=== PATIENT | male | born 1940 | race Caucasian/White ===

== ENCOUNTER 2020-06-27 19:18 | Inpatient (IN) | payer MEDICARE, MEDICAID, SELFPAY ==
--- NOTE | 2020-06-27 19:20 | ECG_ITS ---
[facility] Test Date: 2020-06-27 Pat Name: Royce Bergman Department: Room: 111 Gender: Male Senior Support Analyst: : 1940 Requested By: Jessica Ji Order Number: [id number] Demarco MD: Oseas Phillips M.D. Measurements Intervals [place] Rate: 83 P: 78 ID: [id number] QRS: 2 QRSD: 106 T: 81 QT: 392 QTc: 462 Interpretive Statements SINUS RHYTHM WITH SINUS ARRHYTHMIA WITH FIRST DEGREE AV BLOCK ANTERIOR MYOCARDIAL INFARCTION [40+ ms Q WAVE AND/OR ST/T ABNORMALITY IN V3/V4], OF INDETERMINATE AGE INFERIOR MYOCARDIAL INFARCTION [40+ ms Q WAVE AND/OR ST/T ABNORMALITY IN II/aVF], PROBABLY OLD No previous ECG available for comparison Electronically Signed On 06-28-2020 16:37:29 CDT by Oseas Phillips M.D. [id number]
[2020-06-27 19:22] VITALS: BP 168/84; PULSE 84; RESP 18; TEMP 36.6; O2SAT 100; BMI 22.3
--- NOTE | 2020-06-27 19:25 | ED_ITS ---
HPI - Chest Pain General: Chief Complaint: Chest Pain Stated Complaint: chest pain direct admit Time Seen by Provider: 06/27/20 19:18 Source: patient and EMS Mode of arrival: EMS Limitations: no limitations History of Present Illness: HPI narrative: Mr. Bergman is a nice 80-year-old male who is a transfer from [facility]. He was transferred for a NSTEMI. Patient apparently had chest discomfort and shortness of breath while moving groceries earlier today. Patient been accepted by the hospitalist but came to the ER to have COVID clearance. Patient denies any fevers, cough, shortness of breath, loss of sense of taste, loss of sense of smell or other complaint. Patient currently denies any chest pain. For full report and work-up from [facility] please see the scanned in note that was transferred with the patient. Associated symptoms: Reports dyspnea; Deny abdominal pain, diaphoresis, fever(s), nausea, palpitations, syncope or vomiting Review of Systems Const: Denies: fever(s), chills, body aches, fatigue, malaise or diaphoresis Eyes: Denies: change in vision, blurry vision, photophobia, eye discomfort, eye discharge, eye redness or yellow eyes ENMT: Denies: throat pain, odynophagia, hoarseness, swelling of lips/tongue, ear or mastoid pain, ear discharge, change in hearing or nasal discharge Card: Reports: chest pain; Denies: palpitations, irregular heart rhythm, edema, lightheadedness, syncope, pre-syncope, dyspnea on exertion or orthopnea Resp: Reports: dyspnea; Denies: productive cough, non-productive cough, wheezing, hemoptysis or chest congestion GI: Denies: abdominal pain, nausea, vomiting, hematemesis, coffee ground emes is, heartburn, diarrhea, constipation, GI cramping, hematochezia or melena : Denies: flank pain, dysuria, urinary frequency, urinary urgency or hematuria Musc: Denies: neck pain, back pain, extremity pain, extremity swelling, joint pain, joint swelling, joint redness, joint warmth or joint stiffness Skin/Breast: Denies: rash, pruritus, erythema, skin pain or skin tenderness Neuro: Denies: headache(s), numbness in extremities, weakness in extremities, sensory changes, lack of coordination, difficulty walking, dizziness, vertigo, confusion, Slurred speech present or seizure-like activity Phi/Lymph: Denies: easy bruising, easy bleeding, petechiae, purpura or enlarged lymph nodes All/Imm: Denies: urticaria, throat swelling, tongue swelling, facial swelling or acute wheezing PFSH ED PFSH: Medical History (Updated 06/27/20 @ 20:26 by Lindsay Lerner MD) Abdominal aortic aneurysm 5 cm 2016 Afib CAD (coronary artery disease) Chronic anticoagulation Dyslipidemia Glucose intolerance Hypertension Nephrolithiasis Peripheral arterial disease Surgical History (Updated 06/27/20 @ 20:26 by Lindsay Lerner MD) History of endarterectomy Hx of CABG 1997 S/P abdominal aortic aneurysm repair S/P peripheral artery angioplasty with stent placement Family History (Updated 06/27/20 @ 19:49 by Lindsay Lerner MD) Other Family history non-contributory Social History (Updated 06/27/20 @ 19:49 by Lindsay Lerner MD) Smoking and tobacco status: former smoker Alcohol intake: never Substance/Drug Use: never Housing: House Physical Exam Const: COMMON NORMALS: no acute distress, patient oriented x3, no limitations and alert GENERAL APPEARANCE: cooperative HENMT: COMMON NORMALS: normocephalic, atraumatic, external ears normal, EAC's normal and Normal external nose present HEAD & SCALP: normal to inspection, normocephalic and atraumatic FACE & SINUS: normal facial exam and face symmetric NOSE: Normal external nose present and Normal nares present EXTERNAL EAR: Yes external ears normal EXTERNAL AUDITORY CANAL: EAC's normal MOUTH: Normal oral and palatal mucosa present, lip normal and tongue normal Eye: COMMON NORMALS: Equal, round and reactive pupils present and conjunctivae normal GENERAL EYE: appearance normal, both eyes and all related structures ALIGNMENT: Yes alignment normal PERIORBITAL: periorbital findings normal EYELID: eyelids normal CONJUNCTIVA: Yes conjunctivae normal SCLERA: sclerae normal PUPIL: Yes Equal, round and reactive pupils present Neck/C-Spine: COMMON NORMALS: full ROM, no lymphadenopathy, supple, no meningeal signs and no JVD GENERAL: Yes normal visual inspection and Yes trachea midline Chest: COMMONS NORMALS: normal inspection of the chest and normal palpation of entire chest wall Resp: COMMON NORMALS: normal respiratory effort, No retractions, No use of accessory muscles and clear to auscultation bilaterally EFFORT & INSPECTION: Yes able to speak in complete sentences and Yes symmetric chest movement AUSCULTATION: clear to auscultation bilaterally, no crackles, no rales, no rhonchi and no wheezes Cardio: COMMON NORMALS: no JVD, regular rate, regular rhythm, S1 normal heart sound present and S2 normal heart sound present RATE: regular rate RHYTHM: regular rhythm HEART SOUNDS: S1 normal heart sound present, S2 normal heart sound present, no click, no gallops, no murmurs and no rubs GI: COMMON NORMALS: Soft to palpation and No hepatosplenomegaly present PALPATION: Yes Soft to palpation, No Tenderness to palpation present (GI), No Guarding due to palpation present (GI), No Rigid due to palpation, Yes No hepatosplenomegaly present, No Hernia present, No Palpable mass present and No Pulsatile mass present : COMMON NORMALS: Yes no CVA tenderness BLADDER/KIDNEY EXAM: Yes no CVA tenderness Back/Pelvis: COMMON NORMALS: no CVA tenderness, thoracic and lumbar spine normal to inspection, no thoracic nor lumbar tenderness and thoraco-lumbar ROM normal Extremity: COMMON NORMALS: normal to inspection, full ROM, capillary refill normal, no joint enlargement, no clubbing, cyanosis or edema and no calf tenderness Neuro: COMMON NORMALS: patient oriented x3, CN's II-XII intact bilaterally, moves all extremities, no focal motor deficits and no sensory deficits noted SENSORIUM/ORIENTATION: Yes alert MENINGEAL SIGNS: Yes no meningeal signs SPEECH: speech normal Psych: COMMON NORMALS: mental status grossly normal, Normal thought process present, cooperative, normal affect, speech normal and activity/motor behavior normal SPEECH: Yes normal speech THOUGHT PROCESS: Normal thought process present Skin: COMMON NORMALS: no rashes or lesions noted, turgor normal, no jaundice, no petechiae and no mottling GENERAL SKIN EXAM: no rashes or lesions noted and turgor normal Course Vital Signs: Vital signs: Vital Signs Temperature 97.8 F 06/27/20 19:22 Pulse Rate 85 06/27/20 19:33 Respiratory Rate 20 H 06/27/20 19:33 Blood Pressure 187/89 06/27/20 19:33 Pulse Oximetry 100 06/27/20 19:36 MDM - Chest Pain MDM Narrative: Medical decision making narrative: 1928 -Mr. Bergman is a 80-year-old male who comes in as a transfer from an outside hospital. I see no clinical concern of a COVID-19 infection. Case was reviewed with the hospitalist Dr. Lerner, he agrees to accept the patient to the floor. The case was reviewed with Dr. Phillips and he agrees to consult. He would like to start the patient on a heparin protocol tonight. EKG Data^: EKG 1: Attestation: I personally reviewed and interpreted this EKG as follows: EKG interpretation date: 06/27/20 EKG interpretation time: 19:25 Interpretation: Normal sinus rhythm at 83 beats a minute, normal axis, first- degree AV block, normal QTC. Q waves anteriorly extending through V5. Mild ST segment depression in 1 and aVL. Discharge Plan Discharge Patient Disposition: Admitted As Inpatient Admit Provider: Lindsay Lerner Clinical Impression: Non-ST elevation MD (NSTEMI) Condition: Stable Referrals: Ollie Cook Jr, MD [Primary Care Provider] - Discharge Date/Time: 06/27/20 19:58 Coding Level of Care Code ED Electrical Installation Inspector for Chg Fwd Exam Comprehensive
[2020-06-27 19:33] VITALS: BP 187/89; PULSE 85; RESP 20; O2SAT 100
[2020-06-27 19:36] VITALS: O2SAT 100
--- NOTE | 2020-06-27 19:46 | PM.HP ---
Providers/Chief Complaint Chief Complaint: chest pain direct admit History of Present Illness Royce Bergman is a 80 year old male who has established coronary disease status post CABG, carotid endarterectomy, abdominal aortic aneurysm 5 cm, dyslipidemia, hypertension, former smoker, abdominal aortic aneurysm repair, peripheral arterial disease status post angioplasty came in today with chief complaint of chest pain. Patient is stating that around 10 AM he was in a grocery store when he started experiencing chest pain substernally which he is describing as heart pounding, squeezing chest discomfort, he took 1 dose of nitroglycerin, and second dose at noon, he felt lightheaded but no syncope or falls, this chest discomfort was radiating towards left side of his neck, he did not experience radiation of pain in his arms or back, he is denying nausea, vomiting, diaphoresis. He drove to the [facility] ER, patient requested transfer to [facility] but no bed was available hence transferred to our facility for NSTEMI. Patient is stating that he has been having chest discomfort after strenuous activities, he lives alone manages his daily activities without any issues, he quit smoking long time ago. Does not drink alcohol. Patient is endorsing history of abdominal aneurysm repair which was done 12/21, with stent placement in his right leg as well for peripheral arterial disease. Diagnostic data other facility revealed normal CBC, BMP, magnesium 1.9, digoxin level not high, EKG showed A. fib without RVR, alternating with first-degree AV block sinus rhythm, ST depression in lateral leads with old Q waves COVID antigen negative in the ER, patient had stayed hypertensive, currently chest pain-free, no active respiratory distress. He has been loaded with aspirin at [facility], he was given normal saline and nitroglycerin. Patient's last Eliquis dose was this morning. Review of Systems Const: Denies: fever(s), chills, body aches or fatigue Eyes: Denies: change in vision ENMT: Denies: throat pain Card: Reports: chest pain, palpitations and dyspnea on exertion; Denies: swelling of feet/ankles, syncope or orthopnea Resp: Reports: dyspnea GI: Denies: abdominal pain, diarrhea or constipation : Denies: flank pain Musc: Denies: neck pain Skin/Breast: Denies: rash Neuro: Denies: headache(s) Psych: Denies: anxiety Endo: Denies: polyuria Phi/Lymph: Denies: easy bruising All/Imm: Denies: urticaria Medications/Allergies Allergies Allergy/AdvReac Type Severity Reaction Status Date / Time meperidine [From Demerol] Allergy ADR-Halluci Verified 06/27/20 19:25 nating PFSH Acute PFSH: Medical History (Updated 06/27/20 @ 20:26 by Lindsay Lerner MD) Abdominal aortic aneurysm 5 cm 2017 Afib CAD (coronary artery disease) Chronic anticoagulation Dyslipidemia Glucose intolerance Hypertension Nephrolithiasis Peripheral arterial disease Surgical History (Updated 06/27/20 @ 20:26 by Lindsay Lerner MD) History of endarterectomy Hx of CABG 1997 S/P abdominal aortic aneurysm repair S/P peripheral artery angioplasty with stent placement Family History (Updated 06/27/20 @ 19:49 by Lindsay Lerner MD) Other Family history non-contributory Social History (Updated 06/27/20 @ 19:49 by Lindsay Lerner MD) Smoking and tobacco status: former smoker Alcohol intake: never Substance/Drug Use: never Housing: House Vitals/I&O/Wt Last Vital Signs Temp 97.8 F 06/27/20 19:22 Pulse 85 06/27/20 19:33 Resp 20 H 06/27/20 19:33 BP 187/89 06/27/20 19:33 Pulse Ox 100 06/27/20 19:36 Weight last 48 hrs Weight 58.967 kg Physical Exam Narrative: EXAM NARRATIVE: Healthy looking elderly male Not in any active distress No active respiratory distress, chest pain-free CABG scar noticed EOMI, PERRLA Appropriate mood and affect S1, S2, variable, no active heart failure signs Abdomen soft nontender bowel sound present Lower extremity no edema gangrene ulcer Lungs are clear to auscultation Skin does not show any ischemia gangrene ulcer of lower extremity No vascular compromise of extremities A&P Assessment and plan (1) Non-ST elevation CA (NSTEMI): Status: Acute (2) Unstable angina: Status: Acute (3) Afib: Status: Acute (4) Chronic anticoagulation: Status: Acute Additional A&P Information Unstable angina/NSTEMI with underlying established coronary artery disease Patient has been loaded with aspirin at the [facility], I would load him with Plavix, start aspirin high-dose statins along metoprolol succinate, resume lisinopril and anticoagulate with Lovenox, hold Eliquis, last dose of Eliquis was this morning Currently chest pain-free Echo in the morning, rv service technician consulted We will follow-up on TSH and A1c level Atrial fibrillation without RVR I would resume AV kavita blocking agent, hold digoxin for now, currently on therapeutic dose of Lovenox Peripheral arterial disease Status post angioplasty at [facility] in 12/21 Abdominal aortic aneurysm repair: No acute decompensation Type 2 diabetes: Patient is taking metformin, [id number], He will be n.p.o. after midnight, would only use sliding scale for now. N.p.o. after midnight DVT prophylaxis currently on full dose Lovenox Full code Attestations Medical Necessity Statement*: Anticipating stay in the hospital course more than 2 midnights currently need coronary angiogram for NSTEMI Time Spent in Patient Care: (>than 50% of time spent in counselling and/or direct pt care on unit). 50mins Coding Level of Care Code Acute Buckle Attaching Machine Operator for Sanjuanita Bennett Diagnoses Non-ST elevation CA (NSTEMI) I21.4 Unstable angina I20.0 Afib I48.91 Chronic anticoagulation Z79.01
[2020-06-27 20:00] VITALS: BP 152/79; PULSE 78; RESP 22; O2SAT 96
[2020-06-27 21:17] VITALS: BP 172/95; PULSE 89; RESP 15; O2SAT 100
--- NOTE | 2020-06-27 21:24 | PC.NURSE ---
Patient received from ED via stretcher. Performed admission as documented. Med Rec complete. Informed Dr Lerner of this and also informed that patient takes Plavix daily. Received order to not give a loading dose of Plavix.
[2020-06-27 21:25] LABS: Glucose Point of Care 101 mg/dL (70-110)
[2020-06-27] MEDS: enoxaparin 60 mg/0.6 mL Syringe SUBCUT (21:39)
[2020-06-27] MEDS: atorvastatin 40 mg Tablet 80 MG PO (21:39)
[2020-06-27 23:42] VITALS: BP 109/67; PULSE 111; RESP 18; TEMP 36.8; O2SAT 99
[2020-06-28] VITALS (42 sets, daily range): BP systolic 102–152; BP diastolic 50–85; PULSE 72–99; RESP 9–27; TEMP 36.7–37.1; O2SAT 93–99
--- NOTE | 2020-06-28 | XACV_ITS ---
Exam Room: 1 Ht: 163 cm Wt: 59 kg BSA: 1.64 m2 Gender: Male : 1940 Any Known Allergies: Demerol Exam Priority: Routine Procedure(s): Procedure Description: Diagnostic procedure Procedure Description: Coronary Angiography Diagnostic Cath Status: Urgent Diagnostic Findings LM has luminal irregularities. There is a stent from distal left main into circumflex that is patent. RCA is a small diffusely diseased vessel. pLAD: Severe 100% stenosis, JANI: 0 flow. LAD has stents that are no longer patent. After FERREIRA touchdown LAD is patent. Circumflex artery is a large vessel. There is a stent from left main into proximal circumflex artery that is patent. First marginal branch has a long tubular 70% stenosis. Prior catheterization report from outside hospital also mentioned stenosis in this vessel that was not treated at that time. Very distal left circumflex artery has about 90% stenosis. There is a focal 50 to 60% lesion in mid to distal left circumflex artery. 1st OM: 70% stenosis, JANI: 3 flow. Graft angiography FERREIRA to LAD: Patent. Because of tortuosity of the left sub-subclavian artery we had to get access left radial artery and engage the FERREIRA to LAD. After the touchdown there is mild disease in the LAD. There is a stent at touchdown that is patent. SVG to RCA: This graft was engaged using a multipurpose catheter. This is a diffusely diseased graft with patent stents in the mid and distal segment. There is a large aneurysmal segment after the distal stent. Other grafts are known occluded. Coronary angiography shows co-dominance. Conclusions There is severe coronary artery disease with three vessel disease. SVG to LCx is known occluded. SVG to RCA is diffusely disease. FERREIRA to LAD is patent. LAD stents have occluded. LCx has distal disease. OM 1 has 70% stenosis that was also present on the prior cath report from outside hospital. Mild elevation in troponin. Patient has prior CABG. Recommendations There is no acute change on angiogram compared with angiogram from last year at outside hospital other than LAD/diagonal stents occlusion (that is not acute with no significant increase in troponins and presents of Q waves on anterior leads). We will proceed with medical management at this time. If patient continues having chest pain in future, PCI to OM1 can be considered. Uptitrate Imdur dose. Restart Eliquis. Continue aspirin. Diagnostic RX Recommendation: medical therapy and/or counseling Pressures Phase:Rest AO : 181 mmHg / 68 mmHg ( 105 mmHg ) @ 8:00:00 AM 145 mmHg / 62 mmHg ( 98 mmHg ) @ 8:11:00 AM 145 mmHg / 65 mmHg ( 101 mmHg ) @ 8:21:00 AM Clinical Evaluation EBL: 5mL-10mL Procedural Details Procedure Consent Obtained. Current Diagnosis : NSTEMI. Pre-Procedure Time Out. Identified patient by full name and date of as verbalized by the patient/guarantor. Does the consent match the physician's order: Yes. Accurate & Complete Informed Consent: Yes. Inpatient/Outpatient History & Physical on Chart: Yes. If H&P is completed, is and addenduem needed: No. Visualize and Verify Site with Patient/Guarantor: N/A. Relevant Radiology Images available: N/A. The risks, benefits, and alternatives of sedation and/or procedure were discussed by physician. The patient agrees to continue. Procedure started. [facility] Clinical Fraility Score: 3: Managing Well. Stitcher Special Machine Indications: ACS > 24 hours. Chest Pain Symptom Assessment: Typical Angina Symptoms. Cardiovascular Instability: No. Correct patient, site and procedure confirmed by cath team. Current diagnosis: NSTEMI. PERRLA. Strong, equal hand business development intern bilaterally. Lungs clear x 5 lobes. IV Site on Arrival: 20 gauge in the right forearm. IV Fluids: 0.9% NaCl at KVO. 0 mL infused prior to ear mold laboratory technician. Pre Procedural Pulses: bilateral dorsalis pedis was 1+. Pre Procedural Pulses: bilateral posterior tibial was 1+. Oxygen started at 2liters/min via nasal canula. bilateral groins was prepped with chloroprep then draped in the usual sterile fashion. Physician notified. Baseline sample Acquired. HR: 72 BPM. Patient's family unavailable. Equipment: 6F - Femoral. Cardiac Cath Pack. ACIST Manifold Kit Model BT 2000. Heparinized Saline (2 units/mL), 1000 mL bag. Kit, Micropuncture. Physician arrived. Physician scrubbed in. Immediate Pre-Procedure Time Out. Correct Patient: Yes; Correct Procedure: Yes; Correct Site: Yes; Correct Patient Position: Yes; Correct Supplies: Yes; Dried Flammable Prep: Yes; Blood Products Available: N/A. Lidocaine 1% infiltrated to the left groin. Arterial access obtained with micropuncture set. A 5 yemeni JL4 catheter in over wire. A 5 yemeni JL4 catheter out over wire. A 5 yemeni JL4 catheter in over wire. Multiple views taken of left coronary artery. A 5 yemeni JL4 catheter out over wire. Inventory Added: Exchange wire. A 5 yemeni JL5 catheter in over the exchange wire. A 5 yemeni JL5 catheter out over the exchange wire. A 5 yemeni JR4 catheter in over the exchange wire. Multiple views taken of right coronary artery. A 5 yemeni JR4 catheter out over the exchange wire. A 6 yemeni MPA 1 catheter in over the exchange wire. SVG's to RCA visualized. A 6 yemeni MPA 1 catheter out over the exchange wire. A 5 yemeni IM catheter in over the exchange wire. A 5 yemeni IM catheter out over the exchange wire. Cannot engage the IM from the groin, will try to obtain left radial access. Dr. Phillips scrubbed out to review cineography with Dr. Modi. Lidocaine 1% infiltrated to the left radial. US called at the request of Dr. Phillips for guided left radial access. Shantel Ahmadi, Tech, at bedside. Arterial access obtained. A 6 yemeni IM catheter in over the exchange wire. FERREIRA to LAD visualized. Lobito Sheets RN, FAN MAIL EDITOR in to monitor sharon Samuel RN, FAN MAIL EDITOR. Catheter removed over the exchange wire. Physician review of films. A Suture was successful obtaining hemostatsis at the Left Femoral artery insertion site. A TR Band was successful obtaining hemostatsis at the Left Radial artery insertion site. TR band placed. Hemostasis obtained. Sheath(s) sutured into position with 2-0 silk and sterile 4x4's and Op-site applied over the site. No oozing or signs and symptoms of hematoma noted. Arterial sheath flushed and connected to tranducer and pressure bag with heparinized saline. Post Procedure: Pulses reassessed and unchanged. PERRLA. Strong, equal hand business development intern bilaterally. No VTE prophylaxis required. Medication's Wasted: Lidocaine 1% = 10 mL. Medication's Wasted: Nitro = 49.9 mg. Medication's Wasted: Heparin = 4000 units. Medication's Wasted: Versed = 1 mg. Total IV fluids: 100 mL. Fluoro: 15:04. Contrast type used: Omnipaque 300 mgI/mL, 500 mL bottle. [id number]. Post-op diagnosis: Severe multivessel coronary artery disease. Complications: none. Estimated blood loss: 5mL-10mL. Procedure completed. Patient transferred by bed to 1st floor. Vital chart was stopped. Site: Left Femoral artery Sheath Size: 6 Fr Hemostasis Method: Suture Hemostasis Success: Successful Site: Left Radial artery Sheath Size: 6 Fr Hemostasis Method: TR Band Hemostasis Success: Successful Procedure Medications Start: 12:41 PM Stop: 12:41 PM Medication: Versed Amount: 1 mg Route: I.V. Start: 12:41 PM Stop: 12:41 PM Medication: Fentanyl Amount: 50 mcg Route: I.V. Start: 12:35 PM Stop: 12:35 PM Medication: Plavix Amount: 300 mg Start: 12:35 PM Stop: 12:35 PM Medication: Aspirin Amount: 325 mg Route: P.O. Start: 12:48 PM Stop: 12:48 PM Medication: Versed Amount: 1 mg Route: I.V. Start: 1:00 PM Stop: 1:00 PM Medication: Fentanyl Amount: 50 mcg Route: I.V. Start: 1:15 PM Stop: 1:15 PM Medication: Versed Amount: 1 mg Route: I.V. Start: 1:30 PM Stop: 1:30 PM Medication: Versed Amount: 1 mg Route: I.V. Start: 1:58 PM Stop: 1:58 PM Medication: Nitrogylcerin Amount: 100 mcg Route: I.A. I, the attending physician, have reviewed and verified all procedure medications. Yes, all medications given per verbal order History/Risk Factors Hypertension: Yes Dyslipidemia: Yes Diabetic Therapy: Oral Peripheral Arterial Disease (PAD): Yes Myocardial Infarction (WA): No Obesity: No Renal Disease: No Tobacco Use: Former Prior Interventions PCI: Yes CABG: Yes Valve Surgery: No Report Signatures Finalized by:Oseas Phillips MD on 06/28/2020 6:09:06 PM
--- NOTE | 2020-06-28 | USCV_ITS ---
Royce Bergman Age: 80 Gender: M : 1940 Exam Date: 06/28/2020 13:16 Ordering Phys: Oseas Phillips M.D Technologist: Landry Ahmadi Exam Location: [facility] Indication: ACCESS Findings Vascular access during cath Conclusions The radial artery was identified and was found to be patent, based on color flow Doppler examination Dr Jazmin El MD [facility] (Electronically Signed) Final Date: 29 June 2020 09:06 S
--- NOTE | 2020-06-28 | USCV_ITS ---
Royce Bergman Age: 80 Gender: M : 1940 Exam Date: 06/28/2020 08:56 Ordering Phys: Oseas Phillips M.D ([email or web address]) Technologist: Nadine Barajas Exam Location: [facility] – [place] Indication: CHEST PAIN BP: / HR: 77 Rhythm: Sinus Technical Quality: Good MEASUREMENTS (Male / Female) Normal Values 2D ECHO LV Ejection Fraction MOD 2C 40.4 % LV Ejection Fraction 2C AL 42.8 % FINDINGS Left Ventricle LV systolic function is moderately reduced with EF of 35 to 40%. Mid to apical inferoseptal, alexandria.septal and apical acevedo are akinetic. There is mild to moderate hypokinesis of inferolateral, inferior and anterior wall. Right Ventricle Right Atrium Left Atrium Mitral Valve Aortic Valve Tricuspid Valve Pulmonic Valve Pericardium Aorta CONCLUSIONS This is a limited echocardiogram with contrast to assess for LV systolic function and wall motion abnormalities. LV systolic function is moderately reduced with EF of 35 to 40% with above-mentioned wall motion abnormalities. Oseas Phillips MD (Electronically Signed) Final Date: 28 June 2020 15:45 S
[2020-06-28 04:34] LABS: Basophils % 0.3 %; Eosinophils # 0.1 10^3/uL (0.0-0.8); Eosinophils % 2.2 %; Hemoglobin 13.6 g/dL (11.7-16.6); Lymphocytes # 0.7 10^3/uL (0.8-4.8); Lymphocytes % 10.4 %; Mean Corpuscular HGB Conc 33.2 g/dL (30.0-36.0); Mean Corpuscular Hemoglobin 32.2 pg (28.0-34.0); Mean Corpuscular Volume 97.2 fL (80-94); Monocytes # 0.7 10^3/uL (0.2-0.9); Monocytes % 11.4 %; Neutrophils # 4.69 10^3/uL (1.8-7.7); Neutrophils % 75.1 %; Nucleated Red Blood Cells % 0 %; Platelet Count 160 10^3/cmm (130-400); Red Blood Count 4.22 10^6/uL (4.1-5.3); White Blood Count 6.3 10^3/uL (4.0-10.0)
[2020-06-28 05:00] LABS: Anion Gap 11.9 (5-19); Blood Urea Nitrogen 18 mg/dL (8-23); Calcium 9.4 mg/dL (8.5-10.5); Carbon Dioxide 26 mmol/L (22-29); Chloride 105 mmol/L (98-107); Glucose 93 mg/dL (65-115); Osmolality Calculated 290 mOsm/kg (285-295); Potassium 3.9 mmol/L (3.5-5.1); Sodium 139 mmol/L (136-145)
--- NOTE | 2020-06-28 06:30 | PC.NURSE ---
End of shift: Patient had a uneventful shift. No complaints of chest pain or pain. Patient remains alert and oriented. Vitals are stable at this time.
[2020-06-28 07:04] LABS: INR 1.09 (0.8-1.2)
[2020-06-28 07:05] LABS: Fibrinogen 345 mg/dL (174-498); Partial Thromboplastin Time 32.6 SECONDS (23.9-36.7); Troponin T (5th) Once 57 ng/L (0-15)
[2020-06-28 07:13] LABS: Platelet Count 160 10^3/cmm (130-400)
[2020-06-28] MEDS: dextrose 50% syringe 50 mL 20 ML IVP (07:24)
[2020-06-28 07:40] LABS: Glucose Point of Care 92 mg/dL (70-110)
--- NOTE | 2020-06-28 08:47 | PM.CONSULT ---
Providers/Reason For Consult Consulting Physican/Specialty*: Oseas Phillips MD/cardiology Reason for Consult*: Non-ST elevation myocardial infarction Attending Physician: Rk Guzman Primary Care Provider: Ollie Cook Jr, MD History of Present Illness History of Present Illness Royce Bergman is a 80 year old male with past medical history of AAA status post repair, coronary artery disease status post CABG in 1997 and multiple stents since, hypertension, atrial fibrillation on Eliquis was transferred from [facility] for non-ST elevation [place]. According to the patient yesterday in the grocery store he started noticing palpitations. This was associated with chest pressure across the chest. This was squeezing in nature. He took 2 nitros however he started feeling dizzy with it. Patient has been having chest pain episodes lately with exertion. His EKG showed atrial fibrillation with ST depressions in 1 and aVL. Initial troponin was 47 that trended up to 77. He was given aspirin and Plavix. Patient is on Eliquis which was held. And Lovenox was given. Review of Systems General: Reports: 10 or more systems reviewed and unremarkable except in HPI and below Meds/Allergies Home Medications and Allergies Home Medications Medication Instructions Recorded Confirmed Last Taken Type alprazolam 0.5 mg PO BID PRN 06/27/20 06/27/20 06/26/20 12:00 History apixaban [Eliquis] 2.5 mg PO BID 06/27/20 06/27/20 06/27/20 08:00 History aspirin 81 mg PO DAILY 06/27/20 06/27/20 06/27/20 08:00 History atorvastatin 40 mg PO QPM 06/27/20 06/27/20 06/27/20 17:00 History clopidogrel 75 mg PO DAILY 06/27/20 06/27/20 06/27/20 08:00 History coQ10 (ubiquinol) 200 mg PO DAILY 06/27/20 06/27/20 06/27/20 08:00 History digoxin 250 mcg PO DAILY 06/27/20 06/27/20 06/27/20 08:00 History docusate sodium 50 mg PO DAILY 06/27/20 06/27/20 06/27/20 08:00 History isosorbide mononitrate 30 mg PO QAM 06/27/20 06/27/2006/27/20 08:00 History lisinopril 2.5 mg PO DAILY 06/27/20 06/27/20 06/27/20 08:00 History metformin 500 mg PO BID 06/27/20 06/27/20 06/27/20 17:00 History metoprolol tartrate 75 mg PO BID 06/27/20 06/27/20 06/27/20 08:00 History nitroglycerin [Nitrostat] 0.4 mg SUBLINGUAL Q5M PRN 06/27/20 06/27/20 06/27/20 History ondansetron 4 mg PO Q8H 06/27/20 06/27/20 06/27/20 08:00 History trazodone 50 mg PO BEDTIME 06/27/20 06/27/20 06/26/20 21:00 History Allergies Allergy/AdvReac Type Severity Reaction Status Date / Time meperidine [From Demerol] Allergy ADR-Halluci Verified 06/27/20 19:25 nating Current Medications Current Medications Generic Name Dose Route Start Last Admin Trade Name Freq PRN Reason Stop Dose Admin Atorvastatin Calcium 80 mg 06/27/20 21:00 06/27/20 21:39 Lipitor PO 80 mg BEDTIME DINESH Administration Enoxaparin Sodium 60 mg 06/27/20 21:00 06/27/20 21:39 Lovenox SUBCUT 60 mg Q12H DINESH Administration Insulin Aspart 0 unit 06/27/20 21:00 06/28/20 07:45 Novolog SUBCUT Not Given WM&BEDTIME DINESH Protocol PFSH Acute PFSH: Medical History Abdominal aortic aneurysm 5 cm 2017 Afib CAD (coronary artery disease) Chronic anticoagulation Dyslipidemia Glucose intolerance Hypertension Nephrolithiasis Peripheral arterial disease Surgical History History of endarterectomy Hx of CABG 1997 S/P abdominal aortic aneurysm repair S/P peripheral artery angioplasty with stent placement Family History Other Family history non-contributory Social History Smoking and tobacco status: former smoker Alcohol intake: never Substance/Drug Use: never Housing: House Vitals/I&O/Wt Last Vital Signs Temp 98.5 F 06/28/20 07:57 Pulse 75 06/28/20 07:57 Resp 16 06/28/20 07:57 BP 138/75 06/28/20 07:57 Pulse Ox 94 06/28/20 07:57 06/27/20 06/28/20 06/28/20 22:59 06:59 14:59 Intake Total 240 / 240 100 / 340 Output Total 650 / 650 Balance 240 / 240 -550 / -310 Weight last 48 hrs Weight 130 lb Physical Exam Narrative: EXAM NARRATIVE: GENERAL: Patient is alert, awake and oriented x3. [] NECK: No jugular vein distension. [] HEENT: No cyanosis. No icterus. No pallor. [] HEART: Regular S1 and S2. No murmur, rub or gallop. [] LUNGS: Clear to auscultate bilaterally. [] ABDOMEN: Soft, nontender and nondistended. Positive bowel sounds. No guarding, rebound or tenderness. [] CENTRAL NERVOUS SYSTEM: Grossly nonfocal. [] EXTREMITIES: Lower extremities with no edema bilaterally. Pulses palpable in the lower extremities, right-sided pulses are weak. Could not palpate her right femoral artery well. [] A&P Assessment and plan (1) CAD (coronary artery disease): Status: Acute (2) Non-ST elevation [place] (NSTEMI): Status: Acute (3) Afib: Status: Acute (4) Dyslipidemia: Status: Acute (5) Hypertension: Status: Acute (6) Peripheral arterial disease: Status: Acute Patient has significant coronary artery disease and is here with typical chest pain symptoms along with troponin elevation with a significant delta. He is getting treated as non-ST elevation [place]V. We will recommend coronary angiography to evaluate coronary anatomy and need for possible intervention. I have discussed with him benefits and risks including bleeding, infection, renal function worsening, heart attack, arrhythmias, stroke and associated with the procedure . He understands the risks and benefits and wants to proceed with the procedure. He is n.p.o. since last night. Continue aspirin and Plavix. Continue holding Eliquis. Lovenox switched to heparin drip. Echo has been ordered. We will try to obtain records from [facility] and [facility] in [place] to evaluate for known coronary anatomy and peripheral artery disease as patient mentions difficulty with access in the past. Coding Level of Care Code Acute Demo Specialist for Chg Fwd Diagnoses CAD (coronary artery disease) I25.10 Non-ST elevation [place] (NSTEMI) I21.4 Afib I48.91 Dyslipidemia E78.5 Hypertension I10 Peripheral arterial disease I73.9
[2020-06-28] MEDS: perflutren protein-a microsphr 0.22 mg/mL SDV 3 mL 1 ML IV (09:27)
[2020-06-28] MEDS: clopidogrel 75 mg Tablet PO (09:57)
[2020-06-28] MEDS: lisinopril 10 mg Tablet PO (09:57)
[2020-06-28] MEDS: metoprolol succinate ER (24 HR) 25 mg Tablet PO (09:57)
[2020-06-28] MEDS: heparin drip 25,000 UNIT/500 ML PREMIX 16.5 UNIT IV ×2 (09:58→10:26)
[2020-06-28 10:10] LABS: Troponin T (5th) Once 53 ng/L (0-15)
--- NOTE | 2020-06-28 11:19 | P.PN_ITS ---
Subjective Subjective: Interval history: The patient is doing well. He denies chest pain, palpitations, dizziness or lightheadedness, shortness of breath, nausea or vomiting, or any other complaints. Medications: Reviewed: Yes Medication Review Details: Generic Name Dose Route Start Last Admin Trade Name Arline PRN Reason Stop Dose Admin Atorvastatin Calci um 80 mg 06/27/20 21:00 06/27/20 21:39 Lipitor PO 80 mg BEDTIME DINESH Administration Clopidogrel Bisulf ate 75 mg 06/28/20 09:00 06/28/20 09:57 Plavix PO 75 mg DAILY DINESH Administration Heparin Sodium/Sod ium Chloride 25,000 unit in 50 0 mls @ 0 mls/hr 06/28/20 09:00 06/28/20 10:26 Heparin Drip IV 14 unit/kg/hr .Q0M DINESH 16.5 mls/hr Administration Protocol Per Protocol Insulin Aspart 0 unit 06/27/20 21:00 06/28/20 07:45 Novolog SUBCUT Not Given WM&BEDTIME DINESH Protocol Lisinopril 10 mg 06/28/20 09:00 06/28/20 09:57 Prinivil PO 10 mg DAILY DINESH Administration Metoprolol Succina te 25 mg 06/28/20 09:00 06/28/20 09:57 Toprol Xl PO 25 mg DAILY DINESH Administration Vitals/I&O/Wt Last Vital Signs Temp 98.5 F 06/28/20 07:57 Pulse 75 06/28/20 07:57 Resp 16 06/28/20 07:57 BP 138/75 06/28/20 07:57 Pulse Ox 94 06/28/20 07:57 06/27/20 06/28/20 06/28/20 22:59 06:59 14:59 Intake Total 240 / 240 100 / 340 7.7 / 7.7 Output Total 650 / 650 240 / 240 Balance 240 / 240 -550 / -310 -232.3 / -232.3 Weight last 48 hrs Weight 58.967 kg Physical Exam Narrative: EXAM NARRATIVE: Awake alert oriented. No acute distress. Mood and affect are appropriate. Responses are adequate. Skin is warm and dry. Moist mucous membranes. Neck is supple. No JVD Lungs clear bilaterally. Heart S1, S2, regular Abdomen soft, nontender, bowel sounds are present Extremities trace edema no cyanosis no calf tenderness bilaterally Normal speech. Eyes PERRLA, extra ocular muscles intact. No focal muscle weakness. Data : 06/28/20 04:02 06/28/20 04:02 A&P Additional A&P Information 80-year-old male with past medical history of coronary artery disease presented with chest pain, ischemic changes on EKG consistent with non-ST elevation LA, A. fib with RVR. Currently stable. On heparin drip. Will go for cardiac catheterization today by Dr. Phillips. Will wait for additional recommendations after the procedure. History of dyslipidemia. He is on Lipitor. Hypertension. Well-controlled. Continue current management. Diabetes. Insulin sliding scale. Will resume home medications prior to discharge. DVT prophylaxis. She is currently on heparin drip. Probably will go back to [facility] soon prior to discharge. The plan of care was discussed with the patient. He verbalized understanding and agreement. Attestations Medical Necessity Statement*: The plan of care will mostly depend on the results of the cardiac catheterization. Possible discharge soon, maybe tomorrow. Coding Level of Care Code Acute Community Outreach Advocate for Sanjuanita Bennett
[2020-06-28] MEDS: sodium chloride 0.9% 1,000 ML 50 ML IV (11:32)
[2020-06-28] MEDS: diphenhydrAMINE 50 mg Capsule PO (11:32)
[2020-06-28 11:33] LABS: Glucose Point of Care 100 mg/dL (70-110)
--- NOTE | 2020-06-28 12:40 | W.PM.OPSUD ---
Surgery/Procedure H&P Update DATE OF PROCEDURE: June 28, 2020 DATE H&P PERFORMED: 06/28/20 H&P UPDATE INFORMATION: I have reviewed H&P completed within last 30 days, I have examined patient prior to procedure and No changes to prior documentation PREOP DIAGNOSIS: Non ST elevation MA PRIMARY INDICATION FOR PROCEDURE: Non ST elevation MA PLANNED PROCEDURE: Operation Date: 06/28/20 13:00 Proposed Procedures p Cardiac Catheterization(Left) - Oseas Phillips M.D PATIENT REASSESSED PRIOR TO SEDATION, WITH NO CHANGE NOTED: Yes PHYSICAL EXAM: alert, oriented x 3, clear to auscultation bilaterally and regular rate & rhythm AIRWAY EVAL/ANESTHESIA PLAN: normal airway, ASA III, Risks, benefits & alternatives of sedation and/or procedure discussed and Patient agrees to continue as planned
--- NOTE | 2020-06-28 12:46 | PC.NURSE ---
Patient to laborer plumbing at 1230
--- NOTE | 2020-06-28 16:45 | PC.NURSE ---
Patient found sitting up on the side of the bed. Quickly returned patient to supine position and explained that an artery sheath was still in his left groin. Assessed site. No bleeding. No hematoma.
[2020-06-28 16:49] LABS: Partial Thromboplastin Time 30.1 SECONDS (23.9-36.7)
--- NOTE | 2020-06-28 17:00 | PC.NURSE ---
4ml air removed from TR band. Left radial site immediately began oozing bright red blood. 5 ml air returned to band and bleeding stopped.
[2020-06-28 17:04] LABS: Glucose Point of Care 127 mg/dL (70-110)
--- NOTE | 2020-06-28 17:36 | PC.NURSE ---
Call placed to terminal operations manager outboard motor mechanic requesting an order for fentanyl to be given prior to sheath pull.
[2020-06-28] MEDS: fentaNYL 50 mcg/mL INJ 2mL 25 MCG IVP (17:52)
--- NOTE | 2020-06-28 19:01 | PC.NURSE ---
Sheath pulled from left groin at 1800. Hand held pressure to groin site. Small hematoma formed at site and bleeding controlled. Dr. Oshea at bedside during this procedure to check on patient. I asked about 1800 dose of elequis. stated hold for 4 hours and watch for bleeding. 20 minutes of pressure held and dressing to site.
--- NOTE | 2020-06-28 20:40 | USCV_ITS ---
Pacheco Royce Age: 80 Gender: M : 1940 Exam Date: 06/28/2020 05:57 Ordering Phys: Lindsay Lerner MD Technologist: Nadine Barajas [place] [facility] [facility] [place]ication: NSTEMI BP: 109 / 67 HR: 80 Rhythm: Sinus Technical Quality: Adequate MEASUREMENTS (Male / Female) Normal Values 2D ECHO LV Diastolic Diameter PLAX 3.9 cm 4.2 - 5.9 / 3.9 - 5.3 cm LV Systolic Diameter PLAX 2.4 cm LV Chamber Size 2.4 cm IVS Diastolic Thickness 1.2 cm 0.6 - 1.0 / 0.6 - 0.9 cm IVS Systolic Thickness 1.6 cm LVPW Diastolic Thickness 1.5 cm 0.6 - 1.0 / 0.6 - 0.9 cm LVPW Systolic Thickness 1.8 cm RV Chamber Size 2.9 cm LVOT Diameter 2.0 cm LV Ejection Fraction 2D Teich 69.7 % LV Ejection Fraction MOD 2C -15.4 % LV Ejection Fraction 2C AL -14.2 % LA Diameter 5.0 cm LA Width 4.0 cm LA Height 4.9 cm RA Width 2.9 cm RA Height 4.1 cm Aorta at Sinotubular Diameter 2.9 cm M-MODE LV Diastolic Diameter MM 3.9 cm 4.2 - 5.9 / 3.9 - 5.3 cm LV Systolic Diameter MM 3.1 cm LV Ejection Fraction MM Teich 39.8 % IVS Diastolic Thickness MM 1.4 cm 0.6 - 1.0 / 0.6 - 0.9 cm IVS Systolic Thickness MM 1.4 cm LVPW Diastolic Thickness MM 1.5 cm 0.6 - 1.0 / 0.6 - 0.9 cm LVPW Systolic Thickness MM 1.9 cm RV Diastolic Diameter MM 2.3 cm Aortic Annulus Diameter 3.9 cm LA Ao Ratio MM 1.3 MV E Point Septal Separation 0.5 cm DOPPLER AV Peak Velocity 126.0 cm/s LVOT Peak Velocity 91.0 cm/s AV Area Cont Eq vti 2.5 cm squared AV Area Cont Eq pk 2.3 cm squared MV Area PHT 5.1 cm squared Mitral E to A Ratio 0.9 MV E' Velocity 5.0 cm/s Mitral E to MV E' Ratio 12.2 Mitral E to LV E' Lateral Ratio 12.9 Mitral E to LV E' Septal Ratio 11.8 TR Peak Velocity 247.6 cm/s TR Peak Gradient 24.5 mmHg TR Mean Velocity 179.7 cm/s TR Mean Gradient 13.9 mmHg TR Velocity Time Integral 65.9 cm TV Peak E Velocity 81.0 cm/s Right Atrial Pressure 3.0 mmHg Pulmonary Artery Systolic Pressu 27.5 mmHg PV Peak Velocity 73.0 cm/s RV Acceleration Time 0.0 s RV Ejection Time 0.3 s RV AcT/ET 0.1 FINDINGS Left Ventricle Normal left ventricular size. LV systolic function is moderately reduced with a EF of 35 to 40%. Because of limited visualization accurate assessment of regional wall motion abnormalities is not possible. Moderate LVH is present with a prominent basal septal hypertrophy. Diastolic function is abnormal. Right Ventricle The right ventricle is normal in size and function. Right Atrium The right atrium is normal in size. Left Atrium The left atrium is normal in size. Mitral Valve Structurally normal mitral valve without significant stenosis or prolapse. There is no mitral regurgitation. Aortic Valve Aortic valve is thickened without significant stenosis. There is mild aortic regurgitation. Tricuspid Valve Structurally normal tricuspid valve without significant stenosis mild tricuspid regurgitation is noted. RVSP is 24+ RA pressure. IVC is not well-visualized. Pulmonic Valve Structurally normal pulmonic valve without significant stenosis. There is no pulmonic regurgitation. Pericardium Normal pericardium without effusion. Aorta Ascending aorta is dilated and is measured at 4 cm. CONCLUSIONS This is a technically limited study. LV systolic function is moderately reduced with EF of 35 to 40%. Regional wall motion abnormalities cannot be assessed because of limited quality images. Diastolic function is abnormal. Mild aortic regurgitation is noted. Ascending aorta is dilated. For better assessment of LV function and regional wall motion abnormalities, repeat echo with contrast. Oseas Phillips MD (Electronically Signed) Final Date: 28 June 2020 15:26 S
[2020-06-28] MEDS: acetaminophen 325 mg Tablet 650 MG PO (20:53)
[2020-06-28] MEDS: trazodone 50 mg Tablet PO (20:54)
[2020-06-28] MEDS: atorvastatin 40 mg Tablet 80 MG PO (20:54)
[2020-06-28 21:01] LABS: Glucose Point of Care 108 mg/dL (70-110)
--- NOTE | 2020-06-28 21:28 | PC.NURSE ---
TR band off at this time. Dressing is clean dry and intact no hematoma noted.
[2020-06-29] VITALS: BP 117/65; PULSE 83; RESP 15; TEMP 36.6; O2SAT 96
--- NOTE | 2020-06-29 00:47 | PC.NURSE ---
Patient ambulated post cath. Site is clean dry and intact. Wrist is clean dry and intact no hematoma. Will continue to montior. PAtient educated not to push or pull with L wrist.
[2020-06-29 04:00] VITALS: BP 127/61; PULSE 84; RESP 12; TEMP 36.8; O2SAT 99
[2020-06-29 04:10] LABS: Basophils % 0.5 %; Eosinophils # 0.2 10^3/uL (0.0-0.8); Eosinophils % 2.8 %; Hematocrit 38.7 % (42.0-52.0); Hemoglobin 12.6 g/dL (11.7-16.6); Lymphocytes # 0.6 10^3/uL (0.8-4.8); Lymphocytes % 9.4 %; Mean Corpuscular HGB Conc 32.6 g/dL (30.0-36.0); Mean Corpuscular Hemoglobin 32.3 pg (28.0-34.0); Mean Corpuscular Volume 99.2 fL (80-94); Monocytes # 0.7 10^3/uL (0.2-0.9); Monocytes % 11.4 %; Neutrophils # 4.56 10^3/uL (1.8-7.7); Neutrophils % 75.4 %; Nucleated Red Blood Cells % 0 %; Platelet Count 141 10^3/cmm (130-400); Red Cell Distribution Width 13.3 % (12.1-15.1); White Blood Count 6.1 10^3/uL (4.0-10.0)
[2020-06-29 04:26] LABS: Alanine Aminotransferase 11 U/L (0-41); Albumin Level 3.4 g/dL (3.5-5.2); Alkaline Phosphatase 74 IU/L (40-130); Aspartate Amino Transferase 16 U/L (0-40); Blood Urea Nitrogen 19 mg/dL (8-23); Carbon Dioxide 23 mmol/L (22-29); Chloride 105 mmol/L (98-107); Globulin 1.9 g/dL (1.3-4.6); Glucose 100 mg/dL (65-115); Osmolality Calculated 286 mOsm/kg (285-295); Sodium 137 mmol/L (136-145); Total Bilirubin 1.1 mg/dL (0.15-1.2); Total Protein 5.3 g/dL (6.6-8.7)
[2020-06-29] MEDS: isosorbide mononitrate ER 30 mg Tablet PO (05:47)
[2020-06-29 06:23] LABS: Glucose Point of Care 93 mg/dL (70-110)
--- NOTE | 2020-06-29 07:13 | PC.NURSE ---
End of shift: Patient rested well this shift. Patients wrist and groin are clean dry and intact. Patient denies any pain at this time. Will continue to monitor.
[2020-06-29 08:00] VITALS: BP 112/58; PULSE 102; RESP 16; O2SAT 96
[2020-06-29] MEDS: lisinopril 10 mg Tablet PO (08:24)
[2020-06-29] MEDS: metoprolol succinate ER (24 HR) 25 mg Tablet PO (08:24)
[2020-06-29] MEDS: apixaban 5 mg Tablet 2.5 MG PO (08:25)
[2020-06-29] MEDS: aspirin 81 mg Chew Tablet PO (08:25)
[2020-06-29 08:26] VITALS: PULSE 106
[2020-06-29] MEDS: digoxin 250 mcg Tablet PO (08:26)
[2020-06-29] MEDS: docusate sodium 100 mg Capsule PO (08:26)
[2020-06-29] MEDS: clopidogrel 75 mg Tablet PO (08:26)
--- NOTE | 2020-06-29 08:52 | PM.DCS ---
Discharge Providers Date of Admission: 06/27/20 19:37 Date of Discharge: June 29, 2020 Attending Provider at Admission: Lindsay Lerner MD Attending Provider at Discharge: Rk Guzman Primary Care Provider: Ollie Cook Jr, MD Diagnoses at Discharge Discharge Diagnosis (1) CAD (coronary artery disease): Status: Acute (2) Non-ST elevation AK (NSTEMI): Status: Acute (3) Afib: Status: Acute (4) Dyslipidemia: Status: Acute (5) Hypertension: Status: Acute (6) Peripheral arterial disease: Status: Acute (7) Systolic congestive heart failure: Status: Acute Problem details: Chronic, no exacerbation Reason for Visit Reason for Visit: chest pain direct admit Hospital Course Discharge Summary: Royce Bergman is a 80 year old male who has established coronary disease status post CABG, carotid endarterectomy, abdominal aortic aneurysm 5 cm, dyslipidemia, hypertension, former smoker, abdominal aortic aneurysm repair, peripheral arterial disease status post angioplasty came in today with chief complaint of chest pain. Admission diagnosis was unstable angina and non-ST elevation AK. Echo showed This is a limited echocardiogram with contrast to assess for LV systolic function and wall motion abnormalities. LV systolic function is moderately reduced with EF of 35 to 40% with above-mentioned wall motion abnormalities. There is no clinical evidence of CHF acute exacerbation however. The patient then underwent cardiac catheterization. Conclusions There is severe coronary artery disease with three vessel disease. SVG to LCx is known occluded. SVG to RCA is diffusely disease. FERREIRA to LAD is patent. LAD stents have occluded. LCx has distal disease. OM 1 has 70% stenosis that was also present on the prior cath report from outside hospital. Mild elevation in troponin. Patient has prior CABG. Recommendations There is no acute change on angiogram compared with angiogram from last year at outside hospital other than LAD/diagonal stents occlusion (that is not acute with no significant increase in troponins and presents of Q waves on anterior leads). We will proceed with medical management at this time. If patient continues having chest pain in future, PCI to OM1 can be considered. Uptitrate Imdur dose. Restart Eliquis. Continue aspirin. However patient's blood pressure does not allow to increase Imdur at this time. It can be considered in outpatient settings after discharge. This was discussed with Dr. Phillips. Dr. Phillips also recommended to stop Plavix which was done. The patient is feeling better today. He denies any chest pain, shortness of breath, diaphoresis, palpitations, or any other complaints. He is eager to go home. He is instructed to come back to emergency room if he develops any of the above symptoms. He verbalized understanding and agreement. Physical Exam Narrative: EXAM NARRATIVE: Awake alert oriented. No acute distress. Mood and affect are appropriate. Responses are adequate. Skin is warm and dry. Moist mucous membranes. Neck is supple. No JVD Lungs clear bilaterally. Heart S1, S2, regular Abdomen soft, nontender, bowel sounds are present Extremities trace edema no cyanosis no calf tenderness bilaterally Normal speech. Eyes PERRLA, extra ocular muscles intact. No focal muscle weakness. Discharge Data Data Completed and Pending: Completed Studies During Hospitalization Category Date Time Status ANATOMIC PATHOLOGY MANAGER request for service Routin e Exams 06/28/20 Completed CV echo complete* [id number] Routine Ultrasound 06/28/20 20:40 Completed CV echo lmt wo/w contras [id number] Rout ine Ultrasound 06/28/20 Completed US/CV paperwork R outine Ultrasound 06/28/20 09:19 Completed Pending at discharge Category Date Time Status Platelet Count Q2 D Lab 06/30/20 04:00 Ordered Platelet Count Q2 D Lab 07/02/20 04:00 Ordered CV guide vascular access [id number] Rout ine Ultrasound 06/28/20 Taken Labs from last 24 hours 06/29/20 06/29/20 06/29/20 06:19 03:41 03:41 WBC 6.1 RBC 3.90 L Hgb 12.6 Hct 38.7 L MCV 99.2 H MCH 32.3 MCHC 32.6 RDW 13.3 Plt Count 141 MPV 10.0 Neut % (Auto) 75.4 Lymph % (Auto) 9.4 Bledsoe % (Auto) 11.4 Eos % (Auto) 2.8 Baso % (Auto) 0.5 Neut # (Auto) 4.56 Lymph # (Auto) 0.6 L Bledsoe # (Auto) 0.7 Eos # (Auto) 0.2 Baso # (Auto) 0.0 Nucleated RBC % (a uto) 0 Nucleated RBCs # 0.0 APTT Sodium 137 Potassium 4.0 Chloride 105 Carbon Dioxide 23 Anion Gap 13.0 BUN 19 Creatinine 1.1 GFR Calculation Not Reportable Glucose 100 POC Glucose 93 Calculated Osmolal ity 286 Calcium 9.0 Magnesium 2.0 Total Bilirubin 1.1 AST 16 ALT 11 Alkaline Phosphata se 74 Troponin T Gen 5 n g/L Total Protein 5.3 L Albumin 3.4 L Globulin 1.9 06/28/20 06/28/20 06/28/20 20:46 16:56 16:04 WBC RBC Hgb Hct MCV MCH MCHC RDW Plt Count MPV Neut % (Auto) Lymph % (Auto) Bledsoe % (Auto) Eos % (Auto) Baso % (Auto) Neut # (Auto) Lymph # (Auto) Bledsoe # (Auto) Eos # (Auto) Baso # (Auto) Nucleated RBC % (a uto) Nucleated RBCs # APTT 30.1 Sodium Potassium Chloride Carbon Dioxide Anion Gap BUN Creatinine GFR Calculation Glucose POC Glucose 108 127 Calculated Osmolal ity Calcium Magnesium Total Bilirubin AST ALT Alkaline Phosphata se Troponin T Gen 5 n g/L Total Protein Albumin Globulin 06/28/20 06/28/20 11:13 09:36 WBC RBC Hgb Hct MCV MCH MCHC RDW Plt Count MPV Neut % (Auto) Lymph % (Auto) Bledsoe % (Auto) Eos % (Auto) Baso % (Auto) Neut # (Auto) Lymph # (Auto) Bledsoe # (Auto) Eos # (Auto) Baso # (Auto) Nucleated RBC % (a uto) Nucleated RBCs # APTT Sodium Potassium Chloride Carbon Dioxide Anion Gap BUN Creatinine GFR Calculation Glucose POC Glucose 100 Calculated Osmolal ity Calcium Magnesium Total Bilirubin AST ALT Alkaline Phosphata se Troponin T Gen 5 n g/L 53 H Total Protein Albumin Globulin Vitals: Last Vital Signs Temp 98.2 F 06/29/20 04:00 Pulse 106 H 06/29/20 08:26 Resp 12 06/29/20 04:00 BP 127/61 06/29/20 04:00 Pulse Ox 99 06/29/20 04:00 Discharge Plan Discharge Patient Disposition: Home Condition: Stable Prescriptions: Continued atorvastatin 40 mg Tablet 40 mg PO QPM RF: 0 trazodone 50 mg Tablet 50 mg PO BEDTIME RF: 0 isosorbide mononitrate 30 mg Tablet Extended Release 24 Hr 30 mg PO QAM RF: 0 docusate sodium 50 mg Capsule 50 mg PO DAILY RF: 0 digoxin 250 mcg (0.25 mg) Tablet 250 mcg PO DAILY RF: 0 alprazolam 0.5 mg Tablet 0.5 mg PO BID PRN (Reason: Anxiety) RF: 0 Nitrostat 0.4 mg Tablet, Sublingual 0.4 mg SUBLINGUAL Q5M PRN (Reason: Chest Pain) RF: 0 aspirin 81 mg Tablet,Chewable 81 mg PO DAILY RF: 0 ondansetron 4 mg Tablet,Disintegrating 4 mg PO Q8H RF: 0 lisinopril 2.5 mg Tablet 2.5 mg PO DAILY RF: 0 metoprolol tartrate 25 mg Tablet 75 mg PO BID RF: 0 metformin 500 mg Tablet Extended Release 24hr 500 mg PO BID RF: 0 coQ10 (ubiquinol) 100 mg Capsule 200 mg PO DAILY RF: 0 Eliquis 2.5 mg Tablet 2.5 mg PO BID RF: 0 Discontinued clopidogrel 75 mg Tablet 75 mg PO DAILY RF: 0 Discharge Orders: Discharge Order (Routine); Ordered 06/29/20 Ordered By: Rk Guzman Referrals: Gretchen Lares DO [Referring] - Discharge Diet: Cardiac and Diabetic Discharge Activity: Resume usual activity Patient Instructions: Angina (DC), Left Heart Catheterization (DC), Right Heart Catheterization (DC), Acute Coronary Syndrome (GEN) Activity Restrictions/Additional Instructions: Please return to emergency room if you develop any new chest pain, shortness of breath, diaphoresis, palpitations, dizziness or lightheadedness, or any other new complaints. Please stop your Plavix per cook helper juice recommendations. Please follow-up with your heart doctor in 1 week. Additional testing might be necessary. Further adjustments to your medications might be necessary. Please follow-up with the primary care physician. Discharge Attestations Time Spent in Discharge Care*: less than 30 min Quality Metrics Clinical Quality Measures During this hospital stay, did patient experience: AMI Clinical Trial Participant: No Contraindication to aspirin (AMI): Aspirin given Contraindication to statin: Statin prescribed Contraindication to PCI: PCI performed Coding Level of Care Code Acute Squirrel Man for Sanjuanita Bennett Diagnoses CAD (coronary artery disease) I25.10 Non-ST elevation AK (NSTEMI) I21.4 Afib I48.91 Dyslipidemia E78.5 Hypertension I10 Peripheral arterial disease I73.9 Systolic congestive heart failure I50.20
--- NOTE | 2020-06-29 09:00 | PC.NURSE ---
Drsg on left groin is clean and dry. Instructed patient not to get groin puncture site wet for 48 hrs post procedure. Drsg on left wrist also clean and dry. Instructed patient not to remove either dressing today and to report any bleeding.
[2020-06-29 09:40] VITALS: BP 115/54; PULSE 106; TEMP 36.3; O2SAT 94
== END 2020-06-29 09:50 | disposition home or self-care (01) | DRG 281 ==
LOC: ER 19:50 → CSU 19:52
PROVIDERS: Emergency Medicine; Internal Medicine; Admitting Provider Internal Medicine; PCP Family Medicine; Visit Provider Internal Medicine
PROC: B2111ZZ Fluoroscopy of Multiple Coronary Arteries using Low Osmolar Contrast (ICD-10-PCS; principal; 2020-06-28 13:00)
DX: I21.4 Non-ST elevation (NSTEMI) myocardial infarction (principal); I50.22 Chronic systolic (congestive) heart failure; I25.110 Atherosclerotic heart disease of native coronary artery with unstable angina pectoris; I48.91 Unspecified atrial fibrillation; Z79.01 Long term (current) use of anticoagulants; E78.5 Hyperlipidemia, unspecified; I73.9 Peripheral vascular disease, unspecified; I11.0 Hypertensive heart disease with heart failure; Z95.1 Presence of aortocoronary bypass graft; Z87.891 Personal history of nicotine dependence; Z79.82 Long term (current) use of aspirin; Z79.02 Long term (current) use of antithrombotics/antiplatelets; Z95.5 Presence of coronary angioplasty implant and graft
CPT/HCPCS: 12345; 36415; 36416; 76937; 80048; 80053; 82962; 83735; 84484; 85025; 85049; 85384; 85610; 85730; 93005; 93306; 93459; 96372; 96375; 99282; C1769; C1887; C1894; C8924; G0378; J1644; J1650; J2250; J3010; J3490; J7030; Q0163; Q9956; Q9967